=== PATIENT | male | born 2000 | race Caucasian/White ===

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

== ENCOUNTER 2018-04-12 17:14 | Emergency (ER) | payer SELFPAY ==
[~2018-04-12] VITALS: Ht 172.7 cm; Wt 91.3 kg
[2018-04-12 19:54] LABS: BASOPHIL % 0.4 % (0-2); PLATELET COUNT 201 x10^3mcL (130-400); RED CELL DISTRIBUTION WIDTH 13.4 % (11.5-14.5)
[2018-04-12 20:03] LABS: CALCIUM 8.5 mg/dL (8.5-10.1); CARBON DIOXIDE 27.4 mmol/L (21-32); CHLORIDE SERUM 105 mmol/L (98-107); CREATININE SERUM 0.8 mg/dL (0.7-1.3); GFR1 > 60 mL/min; GLUCOSE SERUM 94 mg/dL (74-106); POTASSIUM SERUM 4.1 mmol/L (3.5-5.1); SODIUM SERUM 139 mmol/L (136-145)
[2018-04-12 20:07] LABS: microscopic required? NO
[2018-04-12 20:23] LABS: urine erythrocyte NEGATIVE (NEGATIVE)
[2018-04-12 22:22] VITALS: BP 130/60
== END 2018-04-12 22:22 | disposition home or self-care (01) ==
LOC: ED 17:14
PROVIDERS: Emergency Medicine Emergency Medical Services
DX: S29.011A Strain of muscle and tendon of front wall of thorax, initial encounter (principal); I10 Essential (primary) hypertension; K21.9 Gastro-esophageal reflux disease without esophagitis; X58.XXXA Exposure to other specified factors, initial encounter; Y93.66 Activity, soccer; Y92.89 Other specified places as the place of occurrence of the external cause; Y99.8 Other external cause status
CPT/HCPCS: Q0162

== ENCOUNTER 2018-06-16 12:08 | Emergency (ER) | payer MEDICAID ==
[~2018-06-16] VITALS: Ht 172.7 cm; Wt 90.7 kg
[2018-06-16 12:15] VITALS: Ht 172.7 cm; Wt 90.7 kg
[2018-06-16 12:46] VITALS: BP 122/65
== END 2018-06-16 12:46 | disposition home or self-care (01) ==
LOC: ED 12:08
DX: H66.91 Otitis media, unspecified, right ear (principal); I10 Essential (primary) hypertension; K21.9 Gastro-esophageal reflux disease without esophagitis

== ENCOUNTER 2018-08-05 20:32 | Emergency (ER) | payer MEDICAID ==
[2018-08-05 20:38] VITALS: Ht 175.3 cm
[2018-08-06 00:30] VITALS: BP 102/56
== END 2018-08-06 00:30 | disposition home or self-care (01) ==
LOC: ED 20:32
DX: R07.89 Other chest pain (principal); R13.10 Dysphagia, unspecified; I10 Essential (primary) hypertension; K21.9 Gastro-esophageal reflux disease without esophagitis
CPT/HCPCS: Q0092

== ENCOUNTER 2018-09-28 17:44 | Emergency (ER) | payer OTHER ==
[~2018-09-28] VITALS: Ht 175.3 cm; Wt 92.1 kg
[2018-09-28 18:09] VITALS: Ht 175.3 cm; Wt 92.1 kg
[2018-09-28 18:46] VITALS: BP 130/67
== END 2018-09-28 18:46 | disposition home or self-care (01) ==
LOC: ED 17:44
DX: J02.9 Acute pharyngitis, unspecified (principal); I10 Essential (primary) hypertension; K21.9 Gastro-esophageal reflux disease without esophagitis

== ENCOUNTER 2018-11-06 16:02 | Emergency (ER) | payer OTHER ==
[~2018-11-06] VITALS: Ht 175.3 cm; Wt 90.7 kg
[2018-11-06 16:50] LABS: BASOPHIL % 0.3 % (0-2); PLATELET COUNT 234 x10^3mcL (130-400); RED CELL DISTRIBUTION WIDTH 13.7 % (11.5-14.5)
[2018-11-06 17:01] LABS: CALCIUM 9.5 mg/dL (8.5-10.1); CARBON DIOXIDE 26.2 mmol/L (21-32); CHLORIDE SERUM 103 mmol/L (98-107); CREATININE SERUM 0.9 mg/dL (0.7-1.3); GFR1 > 60 mL/min; GLUCOSE SERUM 110 mg/dL (74-106); POTASSIUM SERUM 3.5 mmol/L (3.5-5.1); SODIUM SERUM 142 mmol/L (136-145)
[2018-11-06 17:06] LABS: ALBUMIN 4.4 g/dL (3.4-5.0); ALKALINE PHOSPHATASE 83 U/L (46-116); ALT/SGPT 56 U/L (16-63); AST/SGOT 25 U/L (15-37); BILIRUBIN TOTAL 1.1 mg/dL (0.20-1.00)
[2018-11-06 17:07] LABS: TOTAL PROTEIN, SERUM 8.6 g/dL (6.4-8.2)
[2018-11-06 18:04] LABS: T3 TOTAL 1.02 ng/mL
[2018-11-06 18:07] LABS: FREE T4 0.83 ng/dL (0.76-1.46); T4(THYROXINE) 5.7 ug/dL (4.7-13.3)
[2018-11-06 20:32] VITALS: BP 1111/68
== END 2018-11-06 20:32 | disposition home or self-care (01) ==
LOC: ED 16:02
PROVIDERS: Emergency Medicine; Specialist
DX: J02.9 Acute pharyngitis, unspecified (principal); I10 Essential (primary) hypertension; K21.9 Gastro-esophageal reflux disease without esophagitis
CPT/HCPCS: 36415; 84439; 86308

== ENCOUNTER 2018-11-21 09:14 | Emergency (ER) | payer OTHER ==
[~2018-11-21] VITALS: Ht 172.7 cm; Wt 90.7 kg
[2018-11-21 09:17] VITALS: BP 142/78; Ht 172.7 cm; Wt 90.7 kg
== END 2018-11-21 10:35 | disposition home or self-care (01) ==
LOC: ED 09:14
DX: J02.9 Acute pharyngitis, unspecified (principal); M54.2 Cervicalgia; I10 Essential (primary) hypertension; K21.9 Gastro-esophageal reflux disease without esophagitis

== ENCOUNTER 2019-01-09 16:49 | Emergency (ER) | payer OTHER ==
[~2019-01-09] VITALS: Ht 172.7 cm; Wt 89.4 kg
[2019-01-09 16:55] VITALS: Ht 172.7 cm; Wt 89.4 kg
[2019-01-09 20:04] LABS: BASOPHIL % 0.3 % (0-2); PLATELET COUNT 234 x10^3mcL (130-400); RED CELL DISTRIBUTION WIDTH 13.9 % (11.5-14.5)
[2019-01-09 20:16] LABS: CALCIUM 9.3 mg/dL (8.5-10.1); CARBON DIOXIDE 27.8 mmol/L (21-32); CHLORIDE SERUM 102 mmol/L (98-107); CREATININE SERUM 0.9 mg/dL (0.7-1.3); GFR1 > 60 mL/min; GLUCOSE SERUM 103 mg/dL (74-106); POTASSIUM SERUM 4.2 mmol/L (3.5-5.1); SODIUM SERUM 140 mmol/L (136-145)
[2019-01-09 20:20] LABS: ALBUMIN 4.8 g/dL (3.4-5.0); ALKALINE PHOSPHATASE 71 U/L (46-116); ALT/SGPT 65 U/L (16-63); AST/SGOT 27 U/L (15-37); BILIRUBIN TOTAL 2.1 mg/dL (0.20-1.00); LIPASE 97 IU/L (73-393); TOTAL PROTEIN, SERUM 8.9 g/dL (6.4-8.2)
[2019-01-09 21:11] VITALS: BP 121/56
== END 2019-01-09 21:11 | disposition home or self-care (01) ==
LOC: ED 16:49
PROVIDERS: Emergency Medicine
DX: K29.70 Gastritis, unspecified, without bleeding (principal); I10 Essential (primary) hypertension
CPT/HCPCS: 36415

== ENCOUNTER 2019-03-08 14:56 | Emergency (ER) | payer OTHER ==
[~2019-03-08] VITALS: Ht 172.7 cm; Wt 89.8 kg
[2019-03-08 15:24] VITALS: Ht 172.7 cm; Wt 89.8 kg
[2019-03-08 17:42] VITALS: BP 130/74
== END 2019-03-08 17:42 | disposition home or self-care (01) ==
LOC: ED 14:56
DX: R10.12 Left upper quadrant pain (principal); R11.0 Nausea; R07.89 Other chest pain; I10 Essential (primary) hypertension; K21.9 Gastro-esophageal reflux disease without esophagitis
CPT/HCPCS: J1885; J2270

== ENCOUNTER 2019-05-06 17:49 | Emergency (ER) | payer OTHER ==
[~2019-05-06] VITALS: Ht 172.7 cm; Wt 89.4 kg
[2019-05-06 18:09] VITALS: BP 125/72; Ht 172.7 cm; Wt 89.4 kg
== END 2019-05-06 19:47 | disposition home or self-care (01) ==
LOC: ED 17:49
DX: J30.9 Allergic rhinitis, unspecified (principal); I10 Essential (primary) hypertension; K21.9 Gastro-esophageal reflux disease without esophagitis